=== PATIENT | male | born 1990 | race African-American/Black ===

== ENCOUNTER 2020-04-07 06:24 | Emergency (ER) | payer SELFPAY ==
[~2020-04-07] VITALS: Ht 190.5 cm; Wt 81.6 kg
--- NOTE | 2020-04-07 06:34 | NUR ---
BIBra C/O BIZARRE BEHAVIOR. PT RUNNING IN & OUT OF TRAFFIC S/P METH USE, ACCOMPANIED BY [employer], TO ER BED 13
[2020-04-07] MEDS ORDERED: HALOPERIDOL LACTATE INJ 5 MG/ML VIAL ONE (06:42)
[2020-04-07] MEDS ORDERED: LORAZEPAM INJ 2 MG/ML VIAL ONE (06:42)
[2020-04-07] MEDS ORDERED: LORAZEPAM INJ 2 MG/ML VIAL IM ONE (07:00)
[2020-04-07] MEDS ORDERED: HALOPERIDOL LACTATE INJ 5 MG/ML VIAL IM ONE (07:00)
[2020-04-07 07:08] LABS: BASOPHILS % (AUTO) 0.7 % (0.0-2.0); HEMATOCRIT 42 % (39-51); HEMOGLOBIN 13.9 g/dL (13.5-17.5); LYMPHOCYTES # (AUTO) 0.8 /CMM (0.8-4.8); LYMPHOCYTES % (AUTO) 10.8 % (20.0-44.0); MEAN CORPUSCULAR HGB CONC 34 g/dl (31.0-36.0); MEAN CORPUSCULAR VOLUME 94 fL (80-96); MONOCYTES # (AUTO) 0.5 /CMM (0.1-1.30); MONOCYTES % (AUTO) 7.2 % (2.0-12.0); NEUTROPHILS # (AUTO) 6.1 /CMM (1.8-8.9); NEUTROPHILS % (AUTO) 81.3 % (43.0-81.0); PLATELET COUNT (AUTO) 254 /CMM (150-450); RED BLOOD CELL COUNT(AUTO) 4.42 MIL/uL (4.5-6.0); WHITE BLOOD COUNT (AUTO) 7.5 K/uL (4.3-11.0)
--- NOTE | 2020-04-07 07:20 | NUR ---
assume pt care. pt is resting in bed, sleeping but is easily arousable. on monitor. stable vitals noted. denies si/hi. sitter at bedside. will continue to monitor.
[2020-04-07 07:39] LABS: ALBUMIN 3.9 g/dL (3.4-5.0); BILIRUBIN,DIRECT 0.5 mg/dL (0.0-0.2); BILIRUBIN,TOTAL 2.4 mg/dL (0.2-1.0); CALCIUM, SERUM 8.8 mg/dL (8.5-10.1); CREATININE 1.6 mg/dL (0.6-1.3); POTASSIUM 4.2 mmol/L (3.5-5.1); TOTAL PROTEIN, SERUM 7.4 g/dL (6.4-8.2)
--- NOTE | 2020-04-07 12:05 | NUR ---
pt is awake. pt provided w/ meal tray.
--- NOTE | 2020-04-07 14:03 | NUR ---
pt is awake. denies si/hi. c/o L foot/ryan pain but states he is ok. will let ED provider aware that patient is ready to be discharge.
--- NOTE | 2020-04-07 14:59 | NUR ---
pt provided w/ new shirt and crutches to help w/ ambulation. tap card provided. pt signed homeless waiver form. discharge from ed in stable condition.
[2020-04-07 15:02] VITALS: BP 122/104
== END 2020-04-07 15:02 | disposition home or self-care (01) ==
LOC: ER 06:24
DX: F23 Brief psychotic disorder (principal); F15.10 Other stimulant abuse, uncomplicated; R45.1 Restlessness and agitation; F12.10 Cannabis abuse, uncomplicated; R45.6 Violent behavior
CPT/HCPCS: 36415; 80048; 80076; 80305; 80307; 80329; 85025; 96372 ×2; 99285; G0480; J1630; J2060

== ENCOUNTER 2020-05-15 03:55 | Emergency (ER) | payer MEDICAID ==
[~2020-05-15] VITALS: Ht 185.4 cm; Wt 65.8 kg
--- NOTE | 2020-05-15 04:08 | NUR ---
pt bib/lapd from street for bizarre behavior. pt denies si/hi/drug use at this time. pt connected to monitor. pt aox4 rr even and unlabored. pt states " i had a psychotic break down" pt connected to lashawn, waiting for md foster.
--- NOTE | 2020-05-15 04:13 | NUR ---
pt provided with water. also provided ua cup, pt received instructions verbalized understanding.
[2020-05-15] MEDS ORDERED: OLANZAPINE 10 MG VIAL IM ONE ×2 (04:16→04:30)
[2020-05-15] MEDS ORDERED: LORAZEPAM INJ 2 MG/ML VIAL ONE (04:16)
[2020-05-15] MEDS ORDERED: LORAZEPAM INJ 2 MG/ML VIAL IM ONE (04:30)
--- NOTE | 2020-05-15 04:42 | NUR ---
noted pt with left foot swelling, pt states i've had it for 1 month. also noted james knee abrasions, informed cesar huitron; at bedside
--- NOTE | 2020-05-15 04:45 | NUR ---
lab at bedside for blood draw
[2020-05-15 05:15] LABS: BASOPHILS # (AUTO) 0.1 /CMM (0.0-0.2); BASOPHILS % (AUTO) 0.3 % (0.0-2.0); EOSINOPHILS % (AUTO) 0.1 % (0.0-6.0); HEMATOCRIT 33 % (39-51); LYMPHOCYTES # (AUTO) 0.6 /CMM (0.8-4.8); LYMPHOCYTES % (AUTO) 3.9 % (20.0-44.0); MEAN CORPUSCULAR HGB CONC 34 g/dl (31.0-36.0); MEAN CORPUSCULAR VOLUME 93 fL (80-96); MONOCYTES # (AUTO) 0.8 /CMM (0.1-1.30); MONOCYTES % (AUTO) 5.2 % (2.0-12.0); NEUTROPHILS # (AUTO) 14.3 /CMM (1.8-8.9); NEUTROPHILS % (AUTO) 90.5 % (43.0-81.0); PLATELET COUNT (AUTO) 396 /CMM (150-450); RED BLOOD CELL COUNT(AUTO) 3.53 MIL/uL (4.5-6.0); WHITE BLOOD COUNT (AUTO) 15.8 K/uL (4.3-11.0)
[2020-05-15 05:29] LABS: CALCIUM, SERUM 8.6 mg/dL (8.5-10.1); CARBON DIOXIDE 27 mmol/L (21-32); CHLORIDE 101 mmol/L (98-107); CREATININE 2.1 mg/dL (0.6-1.3); GLUCOSE 70 mg/dL (74-106); SODIUM SERUM 139 mmol/L (136-145); UREA NITROGEN, BLOOD 29 mg/dL (7-18)
[2020-05-15 05:36] LABS: ALANINE AMINOTRANSFERASE 56 U/L (12-78); ALBUMIN 2.9 g/dL (3.4-5.0); ALCOHOL, BLOOD < 3 mg/dL (0-0); ALKALINE PHOSPHATASE 148 U/L (46-116); ASPARTATE AMINOTRANSFERASE 35 U/L (15-37); BILIRUBIN,DIRECT 0.2 mg/dL (0.0-0.2); BILIRUBIN,TOTAL 0.6 mg/dL (0.2-1.0); TOTAL PROTEIN, SERUM 7.4 g/dL (6.4-8.2)
[2020-05-15 05:44] LABS: ACETAMINOPHEN 0 ug/ml (10-30); SALICYLATE 1.8 mg/dL (2.8-20.0)
[2020-05-15] MEDS ORDERED: LIDOCAINE 2% JEL UROJET 10 ML MM ONE ×2 (06:00→06:39)
[2020-05-15] MEDS ORDERED: IV NS 0.9% 1,000 ML BAG IV ONE (06:00)
--- NOTE | 2020-05-15 06:51 | NUR ---
URINE COLLECTED AND SENT TO THE LAB.
[2020-05-15 07:47] LABS: APPEARANCE,URINE CLEAR (CLEAR); BILIRUBIN,URINE NEGATIVE (NEGATIVE); BLOOD, URINE TRACE-INTA Ery/uL (NEGATIVE); COLOR,URINE YELLOW (YELLOW); KETONES,URINE NEGATIVE (NEGATIVE); LEUKOCYTE ESTERASE ,URINE NEGATIVE (NEGATIVE); NITRITE, URINE NEGATIVE (NEGATIVE); PH,URINE 5.5 (5.0-8.0); PROTEIN,URINE TRACE mg/dl (NEGATIVE); UGLUCOSE NEGATIVE (NEGATIVE)
[2020-05-15 08:00] LABS: BACTERIA,URINE None seen /HPF (None Seen); RBC,URINE 0-2 /HPF (0-2); SQUAMOUS EPITHELIAL CELL,UR Few /HPF (None Seen); WBC,URINE NONE SEEN /HPF (0-3)
--- NOTE | 2020-05-15 08:02 | NUR ---
ASSESSED PT ON BED ASLEEP BUT EASILY AROUSABLE, NOT IN RESPIRATORY DISTRESS, V/S STABLE, KEPT RESTED AND COMFORTABLE. WILL CONTINUE TO MONITOR.
--- NOTE | 2020-05-15 15:05 | NUR ---
PT AWAKE TALKING AND ABLE TO FEED HIMSELF
--- NOTE | 2020-05-15 16:03 | NUR ---
PT HAD LARG3E BM CLEANED AND GIVEN CLOTHES FELL BACK TO SLEEP
--- NOTE | 2020-05-15 16:15 | NUR ---
PT'S WOUNDS ON KNEE CLEANED AND WRAPPED. PT IS ALSO PROVIDED WITH A MEAL.
[2020-05-15 18:07] VITALS: BP 146/85
--- NOTE | 2020-05-15 18:07 | NUR ---
Patient discharged to home in stable condition. Written and verbal after care instructions given. Patient verbalizes understanding of instruction.IV removed. Catheter intact and site benign. Pressure and 4x4 applied to site. No bleeding noted. Pt ambulatory with a steady gait. Homeless waiver signed by the pt.
== END 2020-05-15 18:08 | disposition home or self-care (01) ==
LOC: ER 03:55
DX: F15.129 Other stimulant abuse with intoxication, unspecified (principal); I10 Essential (primary) hypertension; J45.909 Unspecified asthma, uncomplicated
CPT/HCPCS: 36415; 80048; 80076; 80305; 80307; 80329; 81001; 82550; 82553; 85025; 96360; 96372 ×2; 99285; G0480; J2060; J3490 ×2; J7030; 81000-TC

== ENCOUNTER 2020-06-29 21:06 | Emergency (ER) | payer MEDICAID ==
[~2020-06-29] VITALS: Ht 182.9 cm; Wt 79.8 kg
--- NOTE | 2020-06-29 21:13 | NUR ---
PT AAO4. AMBULATORY WITH STEADY GAIT. BIBSELF C/O SI WITH PLAN TO JUMO OFF A BRIDGE. -HI. PT PLACED IN GOWN, MONITOR, AND PULSE OX. PT BELONINGS PLACED IN LOCKER. VSS. SITTER AT BEDSIDE.
[2020-06-29] MEDS ORDERED: ARIPIPRAZOLE 5 MG TABLET PO ONE (23:00)
[2020-06-29] MEDS ORDERED: ARIPIPRAZOLE 2 MG TABLET ONE (23:12)
[2020-06-29 23:21] LABS: BASOPHILS # (AUTO) 0.1 /CMM (0.0-0.2); BASOPHILS % (AUTO) 1.9 % (0.0-2.0); EOSINOPHILS % (AUTO) 0.4 % (0.0-6.0); HEMATOCRIT 36 % (39-51); HEMOGLOBIN 12.1 g/dL (13.5-17.5); LYMPHOCYTES # (AUTO) 1.7 /CMM (0.8-4.8); LYMPHOCYTES % (AUTO) 25.5 % (20.0-44.0); MEAN CORPUSCULAR HGB CONC 33 g/dl (31.0-36.0); MEAN CORPUSCULAR VOLUME 94 fL (80-96); MONOCYTES # (AUTO) 0.6 /CMM (0.1-1.30); MONOCYTES % (AUTO) 9.4 % (2.0-12.0); NEUTROPHILS # (AUTO) 4.1 /CMM (1.8-8.9); NEUTROPHILS % (AUTO) 62.8 % (43.0-81.0); PLATELET COUNT (AUTO) 300 /CMM (150-450); RED BLOOD CELL COUNT(AUTO) 3.87 MIL/uL (4.5-6.0); WHITE BLOOD COUNT (AUTO) 6.5 K/uL (4.3-11.0)
--- NOTE | 2020-06-29 23:28 | NUR ---
PT PROVIDED WITH WATER AND SANDWHICH.
[2020-06-29] MEDS ORDERED: ARIPIPRAZOLE 2 MG TABLET PO ONE (23:30)
[2020-06-29 23:38] LABS: CALCIUM, SERUM 8.9 mg/dL (8.5-10.1); CARBON DIOXIDE 26 mmol/L (21-32); CHLORIDE 101 mmol/L (98-107); CREATININE 1.6 mg/dL (0.6-1.3); GLUCOSE 101 mg/dL (74-106); POTASSIUM 4.3 mmol/L (3.5-5.1); SODIUM SERUM 138 mmol/L (136-145); UREA NITROGEN, BLOOD 27 mg/dL (7-18)
[2020-06-29 23:44] LABS: ALANINE AMINOTRANSFERASE 78 U/L (12-78); ALBUMIN 3.6 g/dL (3.4-5.0); ALCOHOL, BLOOD < 3 mg/dL (0-0); ALKALINE PHOSPHATASE 69 U/L (46-116); ASPARTATE AMINOTRANSFERASE 31 U/L (15-37); BILIRUBIN,DIRECT 0.1 mg/dL (0.0-0.2); BILIRUBIN,TOTAL 0.4 mg/dL (0.2-1.0); TOTAL PROTEIN, SERUM 7.4 g/dL (6.4-8.2)
[2020-06-29 23:45] LABS: ACETAMINOPHEN < 2 ug/ml (10-30)
[2020-06-29 23:46] LABS: APPEARANCE,URINE CLEAR (CLEAR); BILIRUBIN,URINE NEGATIVE (NEGATIVE); BLOOD, URINE NEGATIVE Ery/uL (NEGATIVE); COLOR,URINE YELLOW (YELLOW); KETONES,URINE NEGATIVE (NEGATIVE); LEUKOCYTE ESTERASE ,URINE NEGATIVE (NEGATIVE); NITRITE, URINE NEGATIVE (NEGATIVE); PROTEIN,URINE NEGATIVE (NEGATIVE); UGLUCOSE NEGATIVE (NEGATIVE); UROBILINOGEN,URINE 0.2 EU/dL (0.2)
--- NOTE | 2020-06-30 00:59 | NUR ---
CLINICAL FAXED TO [facility] FOR VOLUNTARY PSYCH ADMISSION.
--- NOTE | 2020-06-30 03:31 | NUR ---
received a call from Padmaja at [facility] intake w/ acceptance info: pt got accepted at [facility] n[facility]ki under DR Stephy cox 2 # for report: [phone]
--- NOTE | 2020-06-30 03:46 | NUR ---
PT ASLEEP, VSS. PROVIDED WITH MORE BLANKETS.
--- NOTE | 2020-06-30 04:38 | NUR ---
[facility] ETA 0700.
[2020-06-30 05:40] VITALS: BP 128/69
--- NOTE | 2020-06-30 05:44 | NUR ---
REPORT GIVEN TO PASCUAL SCHAEFFER FOR [facility]
--- NOTE | 2020-06-30 07:18 | NUR ---
PER [facility] INTAKE CJ PT CANNOT GO TO [facility] AND WILL GO TO [facility]STE[facility] AND WILL CALL BACK WITH TRANSFER INFO.
--- NOTE | 2020-06-30 09:09 | NUR ---
PT ACCEPTED TO [facility] ROOM 633B NUMBER FOR REPORT [phone] REYNOLDS
--- NOTE | 2020-06-30 09:19 | NUR ---
SPOKE TO AT [facility] ETA 1019
--- NOTE | 2020-06-30 10:28 | NUR ---
GAVE REPORT TO TUSHAR SCHAEFFER AT [facility]. REPORT ALSO GIVEN TO HELMINTHOLOGIST. PATIENT A/OX4, AMBULATORY WITH STEADY GAIT. NO DISTRESS NOTED. TRANSFERRED TO [facility] FOR PSYCH ADMISSION.
== END 2020-06-30 10:29 ==
LOC: ER 21:09
DX: F32.3 Major depressive disorder, single episode, severe with psychotic features (principal); R45.851 Suicidal ideations; F20.9 Schizophrenia, unspecified; J45.909 Unspecified asthma, uncomplicated; Z20.828 Contact with and (suspected) exposure to other viral communicable diseases; I10 Essential (primary) hypertension; F15.10 Other stimulant abuse, uncomplicated
CPT/HCPCS: 36415; 80048; 80076; 80299; 80307; 80320; 81001; 85025; 87426; 99285; C9803; 81000-TC; G0480

== ENCOUNTER 2020-07-11 00:05 | Emergency (ER) | payer MEDICARE, OTHER ==
[~2020-07-11] VITALS: Ht 182.9 cm; Wt 79.8 kg
--- NOTE | 2020-07-11 00:47 | NUR ---
BIBS FOR C/O SI PLANNING TO JUMP OF THE BRIDGE. PT AMBULATORY TO BED 13 W/ SI PRECAUTION. VSS. GOWNED UP. ALL BELONGINGS WERE TAKEN AWAY. PT REMAINED UNDER CLOSE SUPERVISION OF A SITTER. WILL CONT TO MONITOR ,
--- NOTE | 2020-07-11 00:56 | NUR ---
URINE COLLECTED AND SENT TO THE LAB.
[2020-07-11 01:11] LABS: BASOPHILS # (AUTO) 0.1 /CMM (0.0-0.2); EOSINOPHILS % (AUTO) 0.7 % (0.0-6.0); HEMATOCRIT 33 % (39-51); HEMOGLOBIN 11.4 g/dL (13.5-17.5); LYMPHOCYTES # (AUTO) 1.8 /CMM (0.8-4.8); LYMPHOCYTES % (AUTO) 18.2 % (20.0-44.0); MEAN CORPUSCULAR HGB CONC 34 g/dl (31.0-36.0); MEAN CORPUSCULAR VOLUME 94 fL (80-96); MONOCYTES # (AUTO) 0.8 /CMM (0.1-1.30); MONOCYTES % (AUTO) 7.7 % (2.0-12.0); NEUTROPHILS # (AUTO) 7.3 /CMM (1.8-8.9); NEUTROPHILS % (AUTO) 72.4 % (43.0-81.0); PLATELET COUNT (AUTO) 271 /CMM (150-450); RED BLOOD CELL COUNT(AUTO) 3.56 MIL/uL (4.5-6.0); WHITE BLOOD COUNT (AUTO) 10.1 K/uL (4.3-11.0)
[2020-07-11 01:20] LABS: CALCIUM, SERUM 8.3 mg/dL (8.5-10.1); CARBON DIOXIDE 27 mmol/L (21-32); CHLORIDE 105 mmol/L (98-107); CREATININE 1.3 mg/dL (0.6-1.3); GLUCOSE 93 mg/dL (74-106); POTASSIUM 3.8 mmol/L (3.5-5.1); SODIUM SERUM 140 mmol/L (136-145); UREA NITROGEN, BLOOD 22 mg/dL (7-18)
[2020-07-11 01:25] LABS: ACETAMINOPHEN 1 ug/ml (10-30); ALANINE AMINOTRANSFERASE 177 U/L (12-78); ALBUMIN 3.2 g/dL (3.4-5.0); ALCOHOL, BLOOD < 3 mg/dL (0-0); ALKALINE PHOSPHATASE 65 U/L (46-116); ASPARTATE AMINOTRANSFERASE 152 U/L (15-37); BILIRUBIN,DIRECT 0.3 mg/dL (0.0-0.2); BILIRUBIN,TOTAL 0.9 mg/dL (0.2-1.0); TOTAL PROTEIN, SERUM 6.6 g/dL (6.4-8.2)
[2020-07-11 01:36] LABS: BILIRUBIN,URINE NEGATIVE (NEGATIVE); BLOOD, URINE NEGATIVE Ery/uL (NEGATIVE); COLOR,URINE YELLOW (YELLOW); LEUKOCYTE ESTERASE ,URINE NEGATIVE (NEGATIVE); NITRITE, URINE NEGATIVE (NEGATIVE); PROTEIN,URINE NEGATIVE (NEGATIVE); UGLUCOSE NEGATIVE (NEGATIVE); UROBILINOGEN,URINE 0.2 EU/dL (0.2)
--- NOTE | 2020-07-11 02:00 | NUR ---
CLINICAL INFORMATION FAXED TO [facility] INTA[facility]
--- NOTE | 2020-07-11 07:23 | NUR ---
REPORT GIVEN TO PERI Reed RN FOR [facility].
--- NOTE | 2020-07-11 07:45 | NUR ---
Per report from host/hostess head RN awaiting bed from [facility] .
--- NOTE | 2020-07-11 09:30 | NUR ---
PT STATED HE IS NOT SUICIDAL AND WANTS TO BE DISCHARGED. MD AWARE.
--- NOTE | 2020-07-11 09:31 | NUR ---
Pt AAO,Appropriate/Responsive GCS-15. Lucid/Conversant. Denies suicidal ideation at this time. Wanting to be discharged. Dr Sutherland made aware- Evaluated pt and Cleared for discharge. Refusing Homeless Placement and opted to go back to previous living condition. Ambulatory, Gait even and steady Clothed appropriately
--- NOTE | 2020-07-11 09:39 | NUR ---
Patient given written and verbal discharge instructions. Patient verbalizes understanding of instructions. Patient is ambulatory with steady gait. Refuses offer of retirement placement. Patient given list of available shelters in surrounding area.
[2020-07-11 09:40] VITALS: BP 118/70
== END 2020-07-11 09:40 | disposition home or self-care (01) ==
LOC: ER 00:11
DX: F32.9 Major depressive disorder, single episode, unspecified (principal); R45.851 Suicidal ideations; Z59.0 Homelessness; J45.909 Unspecified asthma, uncomplicated; I10 Essential (primary) hypertension; Z20.828 Contact with and (suspected) exposure to other viral communicable diseases; F19.10 Other psychoactive substance abuse, uncomplicated
CPT/HCPCS: 36415; 80048-TC; 80076-TC; 81001; 85025-TC; C9803; G0480

== ENCOUNTER 2020-07-26 22:30 | Emergency (ER) | payer MEDICARE, OTHER ==
[~2020-07-26] VITALS: Ht 182.9 cm; Wt 79.8 kg
--- NOTE | 2020-07-26 22:35 | NUR ---
PT BIBSELF C/O SUICIDAL IDEATION WITH PLAN TO JUMP OFF BRIDGE. PT DENIES HI/HALLUCINATIONS AT THIS TIME. PT AAOX4. CALM AND COOPERATIVE. VITAL SIGNS STABLE. RESPIRATIONS EVEN AND UNLABORED. SKIN INTACT. AMBULATORY WITH STEADY GAIT. NO ACUTE DISTRESS NOTED AT THIS TIME. SUICIDAL PRECAUTIONS INITIATED. PT PLACED IN GOWN, BELONGINGS LOCKED IN PATIENT LOCKER. SITTER AT BEDSIDE. WILL CONTINUE TO MONITOR
[2020-07-26 23:16] LABS: BILIRUBIN,URINE Negative (NEGATIVE); BLOOD, URINE Negative Ery/uL (NEGATIVE); COLOR,URINE YELLOW (YELLOW); LEUKOCYTE ESTERASE ,URINE Negative (NEGATIVE); NITRITE, URINE Negative (NEGATIVE); PH,URINE 5.5 (5.0-8.0); PROTEIN,URINE Negative (NEGATIVE); UGLUCOSE Negative (NEGATIVE); UROBILINOGEN,URINE 0.2 EU/dL (0.2)
[2020-07-26 23:17] LABS: BASOPHILS # (AUTO) 0.2 /CMM (0.0-0.2); BASOPHILS % (AUTO) 3.2 % (0.0-2.0); EOSINOPHILS % (AUTO) 1.1 % (0.0-6.0); HEMATOCRIT 39 % (39-51); HEMOGLOBIN 13.1 g/dL (13.5-17.5); LYMPHOCYTES # (AUTO) 2.6 /CMM (0.8-4.8); LYMPHOCYTES % (AUTO) 41.1 % (20.0-44.0); MEAN CORPUSCULAR HGB CONC 33 g/dl (31.0-36.0); MEAN CORPUSCULAR VOLUME 96 fL (80-96); MONOCYTES # (AUTO) 0.4 /CMM (0.1-1.30); MONOCYTES % (AUTO) 7.1 % (2.0-12.0); NEUTROPHILS % (AUTO) 47.5 % (43.0-81.0); PLATELET COUNT (AUTO) 349 /CMM (150-450); RED BLOOD CELL COUNT(AUTO) 4.11 MIL/uL (4.5-6.0); WHITE BLOOD COUNT (AUTO) 6.3 K/uL (4.3-11.0)
--- NOTE | 2020-07-26 23:18 | NUR ---
COVID SWAB COLLECTED AND SENT TO LAB
[2020-07-26 23:31] LABS: CALCIUM, SERUM 8.7 mg/dL (8.5-10.1); CARBON DIOXIDE 29 mmol/L (21-32); CHLORIDE 99 mmol/L (98-107); CREATININE 1.4 mg/dL (0.6-1.3); GLUCOSE 90 mg/dL (74-106); POTASSIUM 4.6 mmol/L (3.5-5.1); SODIUM SERUM 138 mmol/L (136-145); UREA NITROGEN, BLOOD 23 mg/dL (7-18)
[2020-07-26 23:36] LABS: ALANINE AMINOTRANSFERASE 113 U/L (12-78); ALBUMIN 4.2 g/dL (3.4-5.0); ALCOHOL, BLOOD < 3 mg/dL (0-0); ALKALINE PHOSPHATASE 71 U/L (46-116); ASPARTATE AMINOTRANSFERASE 55 U/L (15-37); BILIRUBIN,DIRECT 0.1 mg/dL (0.0-0.2); BILIRUBIN,TOTAL 0.3 mg/dL (0.2-1.0); TOTAL PROTEIN, SERUM 7.9 g/dL (6.4-8.2)
[2020-07-26 23:37] LABS: ACETAMINOPHEN < 2 ug/ml (10-30)
--- NOTE | 2020-07-27 00:26 | NUR ---
FACESHEET AND CLINICALS FAXED TO [facility].
--- NOTE | 2020-07-27 00:49 | NUR ---
PER [facility]OR AT [facility] THERE ARE NO AVAILABLE BEDS TO ACCEPT PT UNTIL THE MORNING. WILL CALL BACK WITH ANY UPDATES.
--- NOTE | 2020-07-27 04:42 | NUR ---
TRANSFER INFORMATION: PT ACCEPTED TO [facility] ACCEPTING MD: DR. PACHECO NUMBER FOR REPORT: [phone]
--- NOTE | 2020-07-27 04:59 | NUR ---
REPORT GIVEN TO LAURY STYLES FROM [facility] FOR [facility]
--- NOTE | 2020-07-27 06:00 | NUR ---
PT STATES HE IS NO LONGER SUICIDAL. PER DR. STOKES, MEDICALLY CLEARED FOR DISCHARGE. PT PROVIDED WITH RESOURCES AT DISCHARGE. PT DRESSED IN APPROPRIATE CLOTHES AND PROVIDED WITH FOOD. AMBULATORY WITH STEADY GAIT. Patient given written and verbal discharge instructions. Patient verbalizes understanding of instructions. Refuses offer of care home placement. Patient given list of available shelters in surrounding area.
[2020-07-27 06:09] VITALS: BP 135/81
== END 2020-07-27 06:09 | disposition home or self-care (01) ==
LOC: ER 22:35
DX: R45.851 Suicidal ideations (principal); F32.9 Major depressive disorder, single episode, unspecified; Z59.0 Homelessness; Z20.828 Contact with and (suspected) exposure to other viral communicable diseases; J45.909 Unspecified asthma, uncomplicated; I10 Essential (primary) hypertension
CPT/HCPCS: 36415; 80048-TC; 80076-TC; 81001; 85025-TC; C9803; G0480

== ENCOUNTER 2020-07-27 09:23 | Emergency (ER) | payer MEDICARE, OTHER ==
[~2020-07-27] VITALS: Ht 180.3 cm; Wt 86.2 kg
--- NOTE | 2020-07-27 09:50 | NUR ---
Vinayak grover in [facility] - 07/27/[address] robles at [facility] for
--- NOTE | 2020-07-27 09:56 | NUR ---
pt ambulatory to er bed 13 c/o suicidal ideation w/ plan to jump off of a bridge. pt was seen earlier but left since he was feeling better. pt gowned. security at bedside for patient wanding. belongings to safe locker. awaiting md foster.
--- NOTE | 2020-07-27 09:58 | NUR ---
dr robles at bedside for eval.
[2020-07-27 10:05] LABS: BASOPHILS # (AUTO) 0.1 /CMM (0.0-0.2); BASOPHILS % (AUTO) 2.2 % (0.0-2.0); HEMATOCRIT 38 % (39-51); HEMOGLOBIN 12.5 g/dL (13.5-17.5); LYMPHOCYTES # (AUTO) 1.5 /CMM (0.8-4.8); LYMPHOCYTES % (AUTO) 36.8 % (20.0-44.0); MEAN CORPUSCULAR HGB CONC 33 g/dl (31.0-36.0); MEAN CORPUSCULAR VOLUME 96 fL (80-96); MONOCYTES # (AUTO) 0.3 /CMM (0.1-1.30); MONOCYTES % (AUTO) 8.6 % (2.0-12.0); NEUTROPHILS % (AUTO) 51.4 % (43.0-81.0); PLATELET COUNT (AUTO) 285 /CMM (150-450); RED BLOOD CELL COUNT(AUTO) 3.96 MIL/uL (4.5-6.0)
[2020-07-27 10:19] LABS: CALCIUM, SERUM 8.2 mg/dL (8.5-10.1); CARBON DIOXIDE 26 mmol/L (21-32); CHLORIDE 102 mmol/L (98-107); CREATININE 1.6 mg/dL (0.6-1.3); GLUCOSE 111 mg/dL (74-106); SODIUM SERUM 138 mmol/L (136-145); UREA NITROGEN, BLOOD 24 mg/dL (7-18)
[2020-07-27 10:25] LABS: ALANINE AMINOTRANSFERASE 102 U/L (12-78); ALBUMIN 3.7 g/dL (3.4-5.0); ALCOHOL, BLOOD < 3 mg/dL (0-0); ALKALINE PHOSPHATASE 59 U/L (46-116); ASPARTATE AMINOTRANSFERASE 44 U/L (15-37); BILIRUBIN,DIRECT 0.1 mg/dL (0.0-0.2); BILIRUBIN,TOTAL 0.3 mg/dL (0.2-1.0); TOTAL PROTEIN, SERUM 7.2 g/dL (6.4-8.2)
[2020-07-27 10:41] LABS: ACETAMINOPHEN 0 ug/ml (10-30)
--- NOTE | 2020-07-27 12:27 | NUR ---
PT ACCEPTED TO [facility] ACCEPTING MD IS [place] UN[address] 2 CALL [phone] FOR REPORT.
--- NOTE | 2020-07-27 12:36 | NUR ---
CALLED TRANSPORT [facility] ETA IS 1400 PER AMARIL[facility].
--- NOTE | 2020-07-27 12:44 | NUR ---
report given to radha at [facility] vn. awaiting transport abulance/
--- NOTE | 2020-07-27 14:13 | NUR ---
This SW met with the patient at bedside. Patient is a 29 year-old male. Patient was receptive to speaking with this SW. Patient is alert and oriented x4. Patient remained lying in bed while this SW conducted assessment. Patient presented to [facility] ED for suicidal ideation of wanting to jump off a bridge. Patient reports that he was diagnosed with Schizophrenia several years ago and has not taking medications in a few weeks as he no longer has a prescription. Patient is requesting transfer to [facility]. SW and patient discussed voluntary psychiatric hospitalization and patient agreed. Patient denies homicidal ideation. Patient denies auditory and visual hallucinations. Patient denied use of alcohol, drugs, and cigarettes. SW and patient discussed community resources and patient declined these resources. Patient remained calm and cooperative throughout this assessment. Patients thought process was clear and concise. Patient's speech was normal and clear. Plan: SW will fax clinicals to [facility] Intake and will notify Avinash at [facility] (cell) regarding patient wanting voluntary admission. Addendum: 07/27/20 at 1434 by EVIN ROBLES SW had patient sign homeless patient waiver form and this SW placed a copy in this patient's chart.
--- NOTE | 2020-07-27 14:48 | NUR ---
CALLED TO FOLLOW UP WITH DENNY VICTOR IS NOW
--- NOTE | 2020-07-27 14:57 | NUR ---
homeless waiver form was signed by pt.
--- NOTE | 2020-07-27 15:10 | NUR ---
transported to [facility] in stable condition.
[2020-07-27 15:12] VITALS: BP 121/76
== END 2020-07-27 15:12 ==
LOC: ER 09:26
DX: R45.851 Suicidal ideations (principal); F29 Unspecified psychosis not due to a substance or known physiological condition; I10 Essential (primary) hypertension; J45.909 Unspecified asthma, uncomplicated; F20.9 Schizophrenia, unspecified; Z59.0 Homelessness
CPT/HCPCS: 36415; 80048-TC; 80076-TC; 85025-TC; G0480

== ENCOUNTER → 2021-04-08 | Emergency (ER) | payer MEDICARE, OTHER ==
[~2021-04-08] VITALS: Ht 182.9 cm; Wt 74.8 kg
[2021-04-08 02:35] VITALS: BP 132/72
--- NOTE | 2021-04-08 02:35 | NUR ---
PT AAOX4. AMBULATORY WITH STEADY GAIT. BIBSELF C/O DEPRESSED, SI WITH PLAN TO JUMP OFF THE BRIDGE. PT DENIES HI. ER MD AT BEDSIDE. AWAITING ORDERS. PLACED IN GOWN, ON MONITOR, AND PULSE OX. BELONINGS PLACED IN LOCKER. SITTER AT BEDSIDE.
--- NOTE | 2021-04-08 02:50 | NUR ---
BLOOD DRAWN BY FAST BRIM POUNCER.
[2021-04-08 03:00] LABS: CALCIUM, SERUM 8.5 mg/dL (8.5-10.1); CARBON DIOXIDE 29 mmol/L (21-32); CHLORIDE 105 mmol/L (98-107); CREATININE 1.1 mg/dL (0.6-1.3); GLUCOSE 70 mg/dL (74-106); POTASSIUM 4.4 mmol/L (3.5-5.1); SODIUM SERUM 142 mmol/L (136-145); UREA NITROGEN, BLOOD 16 mg/dL (7-18)
[2021-04-08 03:00] LABS: BILIRUBIN,URINE SMALL (NEGATIVE); COLOR,URINE DARK YELLOW (YELLOW); LEUKOCYTE ESTERASE ,URINE Negative (NEGATIVE); NITRITE, URINE Negative (NEGATIVE); PH,URINE 5.5 (5.0-8.0); PROTEIN,URINE Trace mg/dl (NEGATIVE); UGLUCOSE Negative (NEGATIVE); UROBILINOGEN,URINE 0.2 EU/dL (0.2)
[2021-04-08 03:03] LABS: BASOPHILS % (AUTO) 0.3 % (0.0-2.0); EOSINOPHILS % (AUTO) 1.6 % (0.0-6.0); HEMATOCRIT 41 % (39-51); HEMOGLOBIN 13.8 g/dL (13.5-17.5); LYMPHOCYTES % (AUTO) 42.7 % (20.0-44.0); MEAN CORPUSCULAR HGB CONC 34 g/dl (31.0-36.0); MEAN CORPUSCULAR VOLUME 94 fL (80-96); MONOCYTES # (AUTO) 0.4 K/uL (0.1-1.30); MONOCYTES % (AUTO) 9.2 % (2.0-12.0); NEUTROPHILS # (AUTO) 2.2 K/uL (1.8-8.9); NEUTROPHILS % (AUTO) 46.2 % (43.0-81.0); PLATELET COUNT (AUTO) 271 K/uL (150-450); WHITE BLOOD COUNT (AUTO) 4.7 K/uL (4.3-11.0)
[2021-04-08 03:06] LABS: ACETAMINOPHEN < 0 ug/ml (10-30); ALANINE AMINOTRANSFERASE 82 U/L (12-78); ALBUMIN 3.9 g/dL (3.4-5.0); ALCOHOL, BLOOD 5 mg/dL (0-0); ALKALINE PHOSPHATASE 71 U/L (46-116); ASPARTATE AMINOTRANSFERASE 36 U/L (15-37); BILIRUBIN,DIRECT 0.2 mg/dL (0.0-0.2); BILIRUBIN,TOTAL 0.7 mg/dL (0.2-1.0); TOTAL PROTEIN, SERUM 7.8 g/dL (6.4-8.2)
[2021-04-08 03:16] LABS: BACTERIA,URINE None seen /HPF (None Seen); CALCIUM OXALATE CRYSTALS,UR Rare /HPF (None Seen); SQUAMOUS EPITHELIAL CELL,UR Rare /HPF (None Seen); WBC,URINE 0-2 /HPF (0-3)
--- NOTE | 2021-04-08 05:42 | NUR ---
CLINICAL AND FACESHEET FAXED TO [facility] INTAKE FOR VOLUNTARY PSYCH ADMISSION.
--- NOTE | 2021-04-08 10:38 | NUR ---
RE-FAXED CLINICALS TO [facility] INTAKE
--- NOTE | 2021-04-08 10:55 | NUR ---
"Incinerator [employer] General Supervisor consult: [employer] General Supervisor consult requested for suicidal ideation, homelessness and substance use. Patient is a 30-year-old, male. SW met with patient at the waiting room in the emergency department. Patient was alert and oriented x4. Patient presented appropriately groomed. Patient presented calm and cooperative. Per chart, patient was brought in by self on 04/08/21 with compalints of feeling depressed and suicidal with a plan to jump off a bridge. Patient stated that he is currently homeless and has been homeless for months. Patient stated that he occasionally stays with his mother and is provided some social support from his family. Patient receives [employer] as a source of income. SW asked patient about his history of substance use. Patient denied substance use. Per patient's toxicology report, patient is positive for amphetamine, cocaine and cannabis use. Patient reported that he has a history of Schizophrenia and has been taking psychiatric medication. Patient has been taking Abilify, Cogentin, and Klonopin and obtains his psychiatric medication from local [facility] pharmacies. Patient reported that he has a history of hallucinations which include auditory and visual hallucinations. Patient stated that he usualy sees shadows and hears muffled voices. Patient denied current hallucinations. Patient stated that he is currently experiencing suicidal ideation with a plan to jump off a bridge. Patient denied homicidal ideation. SW offered the patient homeless, substance use, and outpatient mental health resources. Patient accepted the resources and thanked TRAVIS. Patient signed the homeless waiver and SW filed waiver in the patient's chart. Patient requested voluntary psychiatric admission. TRAVIS will fax clinicals to [facility], , for review. PLAN: TRAVIS will fax clinicals to [facility], , for review. No further SS intervention at this time, however, SW will remain available as needed. RESOURCES: Year-round shelters: [facility] [address] [place] [address] ; [facility] [address] [place] [address]; [id number]. [facility] [address] SPA 4 | [facility] Provider: First to Serve Address: [address] [place] [address] # of Beds: 48 Population Served: [facility] Provider: First to Serve Address: [address] [facility] [place], [address] # of Beds: 73 Population Served: [employer] [place] [employer] [place] 6 | [facility] Provider: Home at Last Address: [address] [facility], [address] # of Beds: 63 Population Served: [facility] [place] [employer] [place] 3 | [facility] Provider: [employer] [place] Address: [address] [facility], [address] # of Beds: 75 Population Served: [facility] [place] [employer] [place] 8 | [facility] Provider: [employer] [place] Address: [address] [facility] [address] # of Beds: 80 Population Served: [employer] [place] [employer] [place] 1 | [facility] Provider: [employer] [place] Address: [address] [place] [address], [address] # of Beds: 85 Population Served: [facility] [employer] [facility] 2 | [facility] Provider: [facility] Address: Confidential (please call for location) # of Beds: 52 Population Served: [facility] 4 | [facility] Provider: [facility] Address: [address] [facility], [address] # of Beds: 49 Population Served: [facility] Provider: First To Serve Address: [address] [facility] [place], [address] # of Beds: 27 Population Served: [facility] Hygiene: [employer]: [address] [address] ; [employer] [address] [facility] ; [facility] [address] . Food Resources: [place] [employer] at [facility]- [address] [place]; Meet Each Need with Dignity ([facility]) [address]. [place]; [facility] Food [facility] [address] [facility]; [facility] [address] [place]. Mental Health resources provided: [facility] [address] [place] [address] ; [facility] [address] [facility] [address], [place], [place] [id number] ; [facility] [address] [place], [place] [phone] ; [facility] [place], [place] [id number] Healthcare Clinics: [facility] [address] [facility], [address] [place]. [place] ; [facility] [address] [facility] [address] [place] [address]; [facility] [address] [facility]. [place] [phone] Counseling--Outpatient [facility] [address] [facility] [address], [address] [place], [place] [address] (Specializes in in-depth psychotherapy for emotional distress: anxiety, depression, interpersonal conflicts, life transitions, childhood abuse) PSYCHIATRIC OUTPATIENT SERVICES [facility] Partial Hospitalization and Intensive Outpatient Program (Managed Care and [place] Only) [address] [place] [address] [facility] [phone] [facility] Partial Hospitalization and Outpatient Program [address] [place] [address] [facility] Partial Hospitalization and Outpatient Program [address] [place], [place] [id number] VAN YS [facility] [place] [facility] [address] [facility]. [address] [place], [place] [id number] [facility] Partial Hospitalization and Outpatient Program [address], [place] [phone] Substance use resources provided included: [facility] Substance Abuse Self-Helpline (SAS) ; [facility] [address] [facility]. [place] [address] ; [facility] [address] [facility] [address] ; [facility] [address] [facility] [address] ; [facility] [address] [facility] [address] ; [facility]ically [facility] [address] [facility] [phone] ; [facility] [place]; [facility] [place]; [place]; Alcoholics Anonymous -SFV"
--- NOTE | 2021-04-08 11:09 | NUR ---
Tile Helper note: TRAVIS faxed clinicals to [facility], , for review.
--- NOTE | 2021-04-08 15:36 | NUR ---
PT ACCEPTED TO [facility] UNDER DR. LEONARD CALL [phone] OR [phone] PER SHARAD
--- NOTE | 2021-04-08 15:39 | NUR ---
CALLED TRANSPORT ETA 60 MINS PER EDEN
== END ==
LOC: ER 02:40
DX: R45.851 Suicidal ideations (principal); F32.9 Major depressive disorder, single episode, unspecified; J45.909 Unspecified asthma, uncomplicated; Z59.0 Homelessness; I10 Essential (primary) hypertension; Z20.822 Contact with and (suspected) exposure to COVID-19
CPT/HCPCS: 36415; 80048-TC; 80076-TC; 81001; 85025-TC; C9803; G0480

== ENCOUNTER 2021-04-21 17:01 | Emergency (ER) | payer MEDICARE, OTHER ==
[~2021-04-21] VITALS: Ht 182.9 cm; Wt 90.7 kg
--- NOTE | 2021-04-21 17:43 | NUR ---
PT CAME IN TO ED C/O FEELING DEPRESSED AND STATING HE IS SUICIDAL. PT HAS NO ACTIVE PLAN WHILE BEING TRIAGED. PT STATES WANTS TO GO VOLUNTARY TO [facility]. VERBALLY RESPONSIVE. DENIES HI. STABLE VITALS. AWAITING MD VERGARA.
--- NOTE | 2021-04-21 17:50 | NUR ---
ETIENNE CARPENTER AT BEDSIDE FOR EVAL.
--- NOTE | 2021-04-21 18:20 | NUR ---
urine collected and sent to the lab
[2021-04-21 18:31] LABS: BILIRUBIN,URINE Negative (NEGATIVE); COLOR,URINE YELLOW (YELLOW); LEUKOCYTE ESTERASE ,URINE Negative (NEGATIVE); NITRITE, URINE Negative (NEGATIVE); PH,URINE 5.5 (5.0-8.0); PROTEIN,URINE Negative (NEGATIVE); UGLUCOSE Negative (NEGATIVE); UROBILINOGEN,URINE 0.2 EU/dL (0.2)
[2021-04-21 18:33] LABS: BACTERIA,URINE Rare /HPF (None Seen); RBC,URINE NONE SEEN /HPF (0-2); SQUAMOUS EPITHELIAL CELL,UR Few /HPF (None Seen); WBC,URINE NONE SEEN /HPF (0-3)
--- NOTE | 2021-04-21 18:33 | NUR ---
covid swab done and sent to the lab
[2021-04-21 20:27] LABS: BASOPHILS % (AUTO) 0.7 % (0.0-2.0); EOSINOPHILS % (AUTO) 0.6 % (0.0-6.0); HEMATOCRIT 37 % (39-51); HEMOGLOBIN 12.5 g/dL (13.5-17.5); LYMPHOCYTES # (AUTO) 1.7 K/uL (0.8-4.8); LYMPHOCYTES % (AUTO) 35.8 % (20.0-44.0); MEAN CORPUSCULAR HGB CONC 34 g/dl (31.0-36.0); MEAN CORPUSCULAR VOLUME 93 fL (80-96); MONOCYTES # (AUTO) 0.3 K/uL (0.1-1.30); MONOCYTES % (AUTO) 6.3 % (2.0-12.0); NEUTROPHILS # (AUTO) 2.7 K/uL (1.8-8.9); NEUTROPHILS % (AUTO) 56.6 % (43.0-81.0); PLATELET COUNT (AUTO) 254 K/uL (150-450); WHITE BLOOD COUNT (AUTO) 4.8 K/uL (4.3-11.0)
[2021-04-21 20:43] LABS: ACETAMINOPHEN < 2 ug/ml (10-30); ALANINE AMINOTRANSFERASE 87 U/L (12-78); ALBUMIN 3.2 g/dL (3.4-5.0); ALCOHOL, BLOOD < 3 mg/dL (0-0); ALKALINE PHOSPHATASE 55 U/L (46-116); ASPARTATE AMINOTRANSFERASE 40 U/L (15-37); BILIRUBIN,DIRECT 0.1 mg/dL (0.0-0.2); BILIRUBIN,TOTAL 0.4 mg/dL (0.2-1.0); CALCIUM, SERUM 8.7 mg/dL (8.5-10.1); CARBON DIOXIDE 32 mmol/L (21-32); CHLORIDE 105 mmol/L (98-107); CREATININE 1.2 mg/dL (0.6-1.3); GLUCOSE 110 mg/dL (74-106); POTASSIUM 4.4 mmol/L (3.5-5.1); SODIUM SERUM 141 mmol/L (136-145); TOTAL PROTEIN, SERUM 6.7 g/dL (6.4-8.2); UREA NITROGEN, BLOOD 21 mg/dL (7-18)
--- NOTE | 2021-04-21 22:34 | NUR ---
FAXED CLINICALS TO [facility]
--- NOTE | 2021-04-22 01:58 | NUR ---
Pt accepted to [facility] by Dr. Daly, [address]. # for report [phone]
--- NOTE | 2021-04-22 02:09 | NUR ---
CALLED [facility] FOR BLS TRANSPORT TO BE DROPPED OFF AT [facility]. [facility] GAVE AN ESTIMATED TIME OF 75-90 MINUTES BEFORE PATIENT WILL BE PICKED UP.
--- NOTE | 2021-04-22 03:12 | NUR ---
REPORT GIVEN TO NURSE MACIAS AT [facility].
--- NOTE | 2021-04-22 03:28 | NUR ---
REPORT GIVEN TO [facility] EMT'S. PT TRANSFERRING TO [facility].
[2021-04-22 03:29] VITALS: BP 134/87
== END 2021-04-22 03:30 ==
LOC: ER 17:27
DX: R45.851 Suicidal ideations (principal); J45.909 Unspecified asthma, uncomplicated; I10 Essential (primary) hypertension; F32.9 Major depressive disorder, single episode, unspecified; D64.9 Anemia, unspecified; R74.01 Elevation of levels of liver transaminase levels; R82.6 Abnormal urine levels of substances chiefly nonmedicinal as to source; Z59.0 Homelessness; Z20.822 Contact with and (suspected) exposure to COVID-19
CPT/HCPCS: 36415; 80048-TC; 80076-TC; 81001; 85025-TC; C9803; G0480

== ENCOUNTER 2021-04-29 20:24 | Emergency (ER) | payer MEDICARE, OTHER ==
[~2021-04-29] VITALS: Ht 182.9 cm; Wt 90.7 kg
--- NOTE | 2021-04-29 20:30 | NUR ---
CALLED TO TRIAGE NO ANSWER.
--- NOTE | 2021-04-29 20:56 | NUR ---
PATIENT CAME TO ER C/O SI FOR VOLUNTARY ADMISSION. PATIENT IS ALERT AND ORIENTED x4. PATIENT'S BELONGINGS ARE REMOVED AND PLACED INTO A LOCKED LOCKER. PATIENT IS PLACED IN TO A CLEAN GOWN. PATIENT IS BREATHING EVENLY AND UNLABORED ON ROOM AIR. CONNECTED TO THE MONITOR. SITTER IS AT BEDSIDE. WILL CONTINUE TO MONITOR THE PATIENT ACCORDINGLY.
[2021-04-29 21:11] LABS: BILIRUBIN,URINE NEGATIVE (NEGATIVE); COLOR,URINE YELLOW (YELLOW); LEUKOCYTE ESTERASE ,URINE NEGATIVE (NEGATIVE); NITRITE, URINE NEGATIVE (NEGATIVE); PH,URINE 5.5 (5.0-8.0); PROTEIN,URINE 100 mg/dl (NEGATIVE); UGLUCOSE NEGATIVE (NEGATIVE); UROBILINOGEN,URINE 0.2 EU/dL (0.2)
[2021-04-29 21:18] LABS: BACTERIA,URINE RARE /HPF (None Seen); MUCUS,URINE Many /LPF (None Seen); RBC,URINE 0-2 /HPF (0-2); WBC,URINE 0-2 /HPF (0-3)
--- NOTE | 2021-04-29 21:21 | NUR ---
OUTCOMES SPECIALIST AT BEDSIDE.
--- NOTE | 2021-04-29 21:22 | NUR ---
COVID ANTIGEN SWAB SAMPLE COLLECTED AND SENT TO THE LAB.
[2021-04-29 21:47] LABS: BASOPHILS # (AUTO) 0.1 K/uL (0.0-0.2); EOSINOPHILS % (AUTO) 0.8 % (0.0-6.0); HEMATOCRIT 41 % (39-51); HEMOGLOBIN 13.7 g/dL (13.5-17.5); LYMPHOCYTES % (AUTO) 27.4 % (20.0-44.0); MEAN CORPUSCULAR HGB CONC 33 g/dl (31.0-36.0); MEAN CORPUSCULAR VOLUME 94 fL (80-96); MONOCYTES # (AUTO) 0.8 K/uL (0.1-1.30); NEUTROPHILS # (AUTO) 4.3 K/uL (1.8-8.9); NEUTROPHILS % (AUTO) 59.8 % (43.0-81.0); PLATELET COUNT (AUTO) 277 K/uL (150-450); RED BLOOD CELL COUNT(AUTO) 4.38 MIL/uL (4.5-6.0); WHITE BLOOD COUNT (AUTO) 7.2 K/uL (4.3-11.0)
[2021-04-29 22:24] LABS: CALCIUM, SERUM 9.3 mg/dL (8.5-10.1); CARBON DIOXIDE 25 mmol/L (21-32); CHLORIDE 104 mmol/L (98-107); CREATININE 1.6 mg/dL (0.6-1.3); GLUCOSE 97 mg/dL (74-106); POTASSIUM 4.1 mmol/L (3.5-5.1); SODIUM SERUM 143 mmol/L (136-145); UREA NITROGEN, BLOOD 24 mg/dL (7-18)
[2021-04-29 22:30] LABS: ALANINE AMINOTRANSFERASE 124 U/L (12-78); ALBUMIN 4.4 g/dL (3.4-5.0); ALCOHOL, BLOOD < 3 mg/dL (0-0); ALKALINE PHOSPHATASE 58 U/L (46-116); ASPARTATE AMINOTRANSFERASE 63 U/L (15-37); BILIRUBIN,DIRECT 0.4 mg/dL (0.0-0.2); BILIRUBIN,TOTAL 1.8 mg/dL (0.2-1.0); TOTAL PROTEIN, SERUM 8.1 g/dL (6.4-8.2)
[2021-04-29 22:31] LABS: ACETAMINOPHEN 0 ug/ml (10-30)
--- NOTE | 2021-04-29 23:52 | NUR ---
PATIENT'S CLINICALS FAXED TO [facility].
--- NOTE | 2021-04-30 04:15 | NUR ---
PATIENT IS SLEEPING. EASILY AROUSABLE. VSS. CONNECTED TO THE MONITOR. SITTER AT BEDSIDE. WILL CONTINUE TO MONITOR.
--- NOTE | 2021-04-30 05:30 | NUR ---
refaxed clinicals to [facility]
[2021-04-30 07:40] VITALS: BP 119/58
--- NOTE | 2021-04-30 08:53 | NUR ---
FOLLOWED UP WITH [facility]TA[facility]. SPOKE WITH CHRISTOPHER. [facility] IS AT [facility]. WAITING FOR A DISCHARGE BEFORE ACCEPTING PT
--- NOTE | 2021-04-30 09:35 | NUR ---
SPOKE WITH DAWIT. ACCEPTED UNDER DR. LEONARD AT [facility]. NUMBER FOR NURSE TO NURSE REPORT [phone]. BRING AT ANYTIME.
--- NOTE | 2021-04-30 09:45 | NUR ---
Patient eloped from facility. ER MD notified.
== END 2021-04-30 09:46 | disposition left against medical advice (07) ==
LOC: ER 20:27
DX: R45.851 Suicidal ideations (principal); F19.10 Other psychoactive substance abuse, uncomplicated; F15.10 Other stimulant abuse, uncomplicated; F12.10 Cannabis abuse, uncomplicated; F13.10 Sedative, hypnotic or anxiolytic abuse, uncomplicated; J45.909 Unspecified asthma, uncomplicated; Z59.0 Homelessness; Z20.822 Contact with and (suspected) exposure to COVID-19
CPT/HCPCS: 36415; 80048-TC; 80076-TC; 81001; 85025-TC; C9803; G0480